=== PATIENT | female | born 1955 | race Hispanic/Latino ===

== ENCOUNTER 2017-10-05 15:03 | Emergency (ER) | payer OTHER ==
[2017-10-05 15:07] VITALS: BP 166/98; PULSE 89; RESP 20; TEMP 98.3; O2SAT 98
--- NOTE | 2017-10-05 15:22 | C.PDOC ---
History Of Present Illness 62-year-old female, presents to the emergency department with complaints of knee pain. Patient states she has a Hx of right knee pain ever since she twisted it while dancing last year. notes she has a Hx of arthritis, and has recurring flare up. Denies nausea/vomiting, numbness/weakness, fever or any other associated symptoms. No other complaints at this time. Time Seen by Provider: 10/05/17 15:12 Chief Complaint (Nursing): Lower Extremity Problem/Injury History Per: Patient History/Exam Limitations: no limitations Onset/Duration Of Symptoms: Days Current Symptoms Are (Timing): Still Present Severity: Moderate Past Medical History Reviewed: Historical Data, Nursing Documentation, Vital Signs Vital Signs: Last Vital Signs Temp 98.3 F 10/05/17 15:06 Pulse 89 10/05/17 15:06 Resp 20 10/05/17 15:06 BP 166/98 H 10/05/17 15:06 Pulse Ox 98 10/05/17 17:57 Family History: States: No Known Family Hx - Social History Hx Alcohol Use: No Hx Substance Use: No Review Of Systems Constitutional: Negative for: Fever Gastrointestinal: Negative for: Nausea, Vomiting Musculoskeletal: Positive for: Other (right knee pain) Neurological: Negative for: Weakness, Numbness Physical Exam - Physical Exam Appears: Non-toxic, No Acute Distress Skin: Normal Color, Warm, Dry, No Rash Head: Atraumatic, Normacephalic Eye(s): bilateral: Normal Inspection, PERRL Nose: Normal Oral Mucosa: Moist Lips: Normal Appearing Neck: Normal ROM Respiratory: No Accessory Muscle Use (no acute respiratory distress) Extremity: Normal ROM, Tenderness (right knee with diffuse tenderness), No Pedal Edema, No Calf Tenderness, Capillary Refill (<2 seconds), No Deformity, No Swelling Pulses: Left Dorsalis Pedis: Normal, Right Dorsalis Pedis: Normal Neurological/Psych: Oriented x3, Normal Speech ED Course And Treatment O2 Sat by Pulse Oximetry: 98 - Other Rad R KNEE XR X-Ray: Viewed By Me, Read By Radiologist Interpretation: Accession No. : [id number]. Patient Name / ID : PARRISH MONTALVO / [id number]. Exam Date : 10/05/2017 15:24:06 ( Approved ). Study Comment : Sex / Age : F / 62Y. Creator : Keith Butterfield MD. Dictator : Keith Butterfield MD. Medical Billing Coder : Classer : Keith Butterfield MD. Approver2 : Report Date : 10/05/2017 15:51:24. My Comment : . Right knee three views. History: Pain. Comparison: None available. Findings: Medial and patellofemoral compartment joint space narrowing. Osteophytosis at the posterior patella superiorly and inferiorly. Enthesopathic change at the superior patella. Small suprapatellar joint effusion. On the frontal view, a lucency through the proximal tibia medially likely is artifact as it extends into the soft tissues. Clinical correlation. If there is concern for osseous injury at this level correlation with MRI may be helpful. Impression: On the frontal view, a lucency through the proximal tibia medially likely is artifact as it extends into the soft tissues. Clinical correlation. If there is concern for osseous injury at this level correlation with MRI may be helpful. Medial and patellofemoral compartment joint space narrowing. Osteophytosis at the posterior patella superiorly and inferiorly. Enthesopathic change at the superior patella. Small suprapatellar joint effusion. If pain persists, consider MRI. Medical Decision Making Medical Decision Making: Plan: * XR Knee * Tylenol PO * Reassess and Disposition Disposition Counseled Patient/Family Regarding: Studies Performed, Diagnosis, Need For Followup, Rx Given - Disposition Referrals: Keesha Coe MD [Staff Provider] - Disposition: HOME/ ROUTINE Disposition Time: 16:02 Condition: GOOD Additional Instructions: FOLLOW UP WITH YOUR PMD AND ORTHOPEDIST ON SATURDAY FOR RE-EVALUATION. KNEE IMMOBILIZER AND CRUTCHES FOR WALKING. IF SYMPTOMS GET WORSE OR ANY NEW CONCERNING SYMPTOMS DEVELOP RETURN TO ED. Prescriptions: Acetaminophen [Tylenol] 2 tab PO Q6H PRN #30 capsule PRN Reason: Pain, Moderate (4-7) Instructions: Tendonitis, Osteoarthritis (DC) Forms: [employer] (Nepalese), General Discharge Instructions Print Language: KOREAN - Clinical Impression Clinical Impression: Knee effusion, Arthritis - Scribe Statement The provider has reviewed the documentation as recorded by the Scribe (Zain Hauser) All medical record entries made by the Scribe were at my direction and personally dictated by me. I have reviewed the chart and agree that the record accurately reflects my personal performance of the history, physical exam, medical decision making, and the department course for this patient. I have also personally directed, reviewed, and agree with the discharge instructions and disposition.
--- NOTE | 2017-10-05 15:52 | RAD ---
Right knee three views History: Pain. Comparison: None available. Findings: Medial and patellofemoral compartment joint space narrowing. Osteophytosis at the posterior patella superiorly and inferiorly. Enthesopathic change at the superior patella. Small suprapatellar joint effusion. On the frontal view, a lucency through the proximal tibia medially likely is artifact as it extends into the soft tissues. Clinical correlation. If there is concern for osseous injury at this level correlation with MRI may be helpful. Impression: On the frontal view, a lucency through the proximal tibia medially likely is artifact as it extends into the soft tissues. Clinical correlation. If there is concern for osseous injury at this level correlation with MRI may be helpful. Medial and patellofemoral compartment joint space narrowing. Osteophytosis at the posterior patella superiorly and inferiorly. Enthesopathic change at the superior patella. Small suprapatellar joint effusion. If pain persists, consider MRI.
== END 2017-10-05 15:56 | disposition home or self-care (01) ==
LOC: C.ER 15:03
DX: M25.461 Effusion, right knee (principal); M17.11 Unilateral primary osteoarthritis, right knee

== ENCOUNTER 2017-11-27 11:15 | Emergency (ER) | payer OTHER ==
[2017-11-27 11:19] VITALS: BP 165/95; PULSE 82; RESP 20; TEMP 97.9; O2SAT 98
--- NOTE | 2017-11-27 11:46 | C.PDOC ---
History Of Present Illness 62 year old female brought to the ED by ambulance for evaluation of left thigh pain/muscle spasm noted when she woke up this morning. Patient has history of chronic right knee pain. She states she was doing exercises in physical therapy yesterday, and wondering if her current symptoms were caused by this. She denies any recent falls/injuries, fever, chest pain, SOB, rash, sensory changes. Time Seen by Provider: 11/27/17 11:16 Chief Complaint (Nursing): Lower Extremity Problem/Injury History Per: Patient History/Exam Limitations: no limitations Onset/Duration Of Symptoms: Hrs Current Symptoms Are (Timing): Still Present Severity: Moderate Additional History Per: Patient Past Medical History Reviewed: Historical Data, Nursing Documentation, Vital Signs Vital Signs: Last Vital Signs Temp 97.9 F 11/27/17 11:18 Pulse 82 11/27/17 11:18 Resp 20 11/27/17 11:18 BP 165/95 H 11/27/17 11:18 Pulse Ox 98 11/27/17 15:17 - Medical History PMH: Back Problems Surgical History: No Surg Hx Family History: States: No Known Family Hx - Social History Hx Alcohol Use: No Hx Substance Use: No Review Of Systems Constitutional: Negative for: Fever, Chills Cardiovascular: Negative for: Chest Pain, Palpitations Respiratory: Negative for: Cough, Shortness of Breath Gastrointestinal: Negative for: Nausea, Vomiting, Abdominal Pain, Diarrhea Musculoskeletal: Positive for: Other (left thigh pain/muscle spasm ) Skin: Negative for: Rash Neurological: Negative for: Weakness, Numbness Physical Exam - Physical Exam Appears: Well, Non-toxic, No Acute Distress Skin: Normal Color, Warm, Dry, No Rash, No Ecchymosis, No Other (erythema to left thigh ) Head: Normacephalic Eye(s): bilateral: Normal Inspection Oral Mucosa: Moist Teeth: No Normal Dentition (poor ) Neck: Supple Cardiovascular: Rhythm Regular Respiratory: Normal Breath Sounds, No Rales, No Rhonchi, No Wheezing Extremity: Tenderness (mild TTP to left outer thigh ), Capillary Refill (< 2 sec all digits ), No Deformity, No Swelling Extremity: Left: Hips Non-Tender Pulses: Left Dorsalis Pedis: Normal, Right Dorsalis Pedis: Normal Neurological/Psych: Oriented x3, Normal Motor, Normal Sensation Gait: Steady ED Course And Treatment O2 Sat by Pulse Oximetry: 98 (on RA) Pulse Ox Interpretation: Normal Progress Note: Patient Motrin PO given. Patient's symptoms likely due to muscle spasm/soreness from PT yesterday. No rash/deformity/swelling, etc on exam. Pain improved with Motrin, and patient able to ambulate well in ED. She was discharged and instructed to follow up with her PMD in 1-2 days. She understands she should return to ED if symptoms worsen. Reevaluation Time: 11:50 Reassessment Condition: Improved Disposition Counseled Patient/Family Regarding: Diagnosis, Need For Followup - Disposition Referrals: Shaik Jeter MD [Staff Provider] - Disposition: HOME/ ROUTINE Disposition Time: 11:50 Condition: STABLE Additional Instructions: FOLLOW UP WITH YOUR DOCTOR IN 1-2 DAYS CONTINUE YOUR PHYSICAL THERAPY USE IBUPROFEN FOR PAIN NEEDED RETURN TO ER IF SYMPTOMS WORSEN Instructions: Chronic Knee Pain (DC) Forms: [employer] (Divehi) Print Language: ARABIC - Clinical Impression Clinical Impression: Muscle spasm, Chronic pain of right knee - Scribe Statement The provider has reviewed the documentation as recorded by the Scribe (Jasmyne Esteban) Provider Attestation: All medical record entries made by the Scribe were at my direction and personally dictated by me. I have reviewed the chart and agree that the record accurately reflects my personal performance of the history, physical exam, medical decision making, and the department course for this patient. I have also personally directed, reviewed, and agree with the discharge instructions and disposition.
== END 2017-11-27 12:02 | disposition home or self-care (01) ==
LOC: C.ER 11:15
DX: M62.838 Other muscle spasm (principal); M25.561 Pain in right knee; G89.29 Other chronic pain

== ENCOUNTER 2017-12-27 17:37 | Emergency (ER) | payer OTHER ==
[2017-12-27 17:58] VITALS: O2SAT 98
--- NOTE | 2017-12-27 18:56 | C.PDOC ---
History Of Present Illness 62 y/o female presents to the ED complaining of right knee pain for 1 year. She denies any fall or blunt trauma. Patient reports that last year while dancing she injured the knee, and ever since then pain has been intermittent. She also reports feeling numbness in her toes, described as if they are . Patient otherwise denies any extremity weakness and is able to ambulate by weight bearing more on her left side, although occasionally this causes pain in her left knee as well. She has seen her PMD for similar complaint, and had an x-ray showing arthritis. Patient reports taking ibuprofen at home with minimal relief. No gross swelling, skin changes, or other complaints. Time Seen by Provider: 12/27/17 18:45 Chief Complaint (Nursing): Lower Extremity Problem/Injury History Per: Patient History/Exam Limitations: no limitations Onset/Duration Of Symptoms: Days (1 year) Current Symptoms Are (Timing): Still Present Past Medical History Reviewed: Historical Data, Nursing Documentation, Vital Signs Vital Signs: Last Vital Signs Temp 98.4 F 12/27/17 21:30 Pulse 81 12/27/17 21:30 Resp 16 12/27/17 21:30 BP 152/89 H 12/27/17 21:30 Pulse Ox 98 12/27/17 21:30 - Medical History PMH: Back Problems Family History: States: Unknown Family Hx - Social History Hx Alcohol Use: No Hx Substance Use: No Review Of Systems Except As Marked, All Systems Reviewed And Found Negative. Musculoskeletal: Positive for: Leg Pain (right knee pain) Skin: Negative for: Rash, Lesions, Bruising Neurological: Positive for: Numbness (to toes on bilateral feet). Negative for : Weakness, Incoordination Physical Exam - Physical Exam Appears: Well, Non-toxic, No Acute Distress Skin: Normal Color, Warm, Dry Head: Atraumatic, Normacephalic Eye(s): bilateral: Normal Inspection, PERRL, EOMI Neck: Normal ROM, Supple Chest: Symmetrical Extremity: Normal ROM, No Tenderness, Capillary Refill (< 2 sec), No Deformity, No Swelling (or ecchymosis) Pulses: Left Dorsalis Pedis: Normal, Right Dorsalis Pedis: Normal Neurological/Psych: Oriented x3, Normal Speech, Normal Motor, Normal Sensation ED Course And Treatment O2 Sat by Pulse Oximetry: 98 (RA) Pulse Ox Interpretation: Normal Medical Decision Making Medical Decision Making: Initial Impression: Right knee pain Plan: --Motrin 600 mg PO --Bilateral knee x-rays Disposition - Disposition Referrals: Jg Green, [Non-Staff] - Ulises Melton III, MD [Staff Provider] - Disposition: HOME/ ROUTINE Disposition Time: 19:40 Condition: GOOD Additional Instructions: SEL[facility]IN SENIOR, thank you for letting us take care of you today. The emergency medical care you received today was directed at your acute symptoms. If you were prescribed any medication, please fill it and take as directed. It may take several days for your symptoms to resolve. Return to the Emergency Department if your symptoms worsen, do not improve, or if you have any other problems. Please contact your doctor or call one of the physicians/clinics you have been referred to that are listed on the Patient Visit Information form that is included in your discharge packet. Bring any paperwork you were given at discharge with you along with any medications you are taking to your follow up visit. Our treatment cannot replace ongoing medical care by a primary care provider outside of the emergency department. Thank you for allowing the [facility] team to be part of your care today. Follow up with your primary care doctor and the orthopedic doctor next week for re-evaluation and further management. Prescriptions: Ibuprofen [Motrin] 600 mg PO Q6 PRN #20 tab PRN Reason: Pain, Moderate (4-7) Instructions: Osteoarthritis (DC), Knee Pain (DC) Forms: [employer] (Peruvian) - Clinical Impression Clinical Impression: Arthritis - Scribe Statement The provider has reviewed the documentation as recorded by the Jennifer Reilly Provider Attestation: All medical record entries made by the Karenibzakia were at my direction and personally dictated by me. I have reviewed the chart and agree that the record accurately reflects my personal performance of the history, physical exam, medical decision making, and the department course for this patient. I have also personally directed, reviewed, and agree with the discharge instructions and disposition.
[2017-12-27 22:03] VITALS: BP 152/89; PULSE 81; RESP 16; TEMP 98.4
--- NOTE | 2017-12-28 09:03 | RAD ---
Date of service: 12/27/2017 PROCEDURE: Bilateral Knee Radiographs. HISTORY: r/o fx COMPARISON: Right knee radiographs 10/05/2017. FINDINGS: BONES: No acute fracture or destructive bony lesion identified, bilaterally. JOINTS: Advanced osteoarthritis is appreciate bilaterally concentrated at the medial femorotibial and patellofemoral compartments where there is joint space narrowing and articular cortical sclerosis. No prominent osteophyte development. SOFT TISSUES: Soft tissue calcifications approximate bilateral menisci in medial lateral femorotibial compartments and are otherwise unremarkable. JOINT EFFUSION: Right Knee: None. Left Knee: None. OTHER FINDINGS: None. IMPRESSION: Advanced bilateral osteoarthritis. No acute fracture, dislocation or destructive bony lesion appreciable.
== END 2017-12-27 22:04 | disposition home or self-care (01) ==
LOC: C.ER 17:37
DX: M19.90 Unspecified osteoarthritis, unspecified site (principal)

== ENCOUNTER 2018-04-10 13:02 | Emergency (ER) | payer OTHER ==
[2018-04-10 13:24] VITALS: BMI 36.9
--- NOTE | 2018-04-10 13:42 | C.PDOC ---
History Of Present Illness 62 y/o female,w/PMhx of osteoarthritis, presents to the ER complaining of right knee pain which has been present for the past 1 year. Patient states that she was dancing when she injured her knee 1 year ago. Patient reports that she took Naproxen without relief. She notes that she was supposed to follow up with her orthopedic surgery, however she did follow up with an orthopedic surgeon because she had insurance issues. Denies any trauma, weakness and parasthesias and has no other complaints. Time Seen by Provider: 04/10/18 13:16 Chief Complaint (Nursing): Lower Extremity Problem/Injury History Per: Patient History/Exam Limitations: no limitations Onset/Duration Of Symptoms: Days Current Symptoms Are (Timing): Still Present Severity: Moderate Past Medical History Reviewed: Historical Data, Nursing Documentation, Vital Signs Vital Signs: Last Vital Signs Temp 97.6 F 04/10/18 13:12 Pulse 104 H 04/10/18 13:12 Resp BP 155/98 H 04/10/18 13:12 Pulse Ox 95 04/10/18 13:12 - Medical History PMH: Back Problems Other Surgeries: Hx of surgeries Family History: States: No Known Family Hx - Social History Hx Alcohol Use: No Hx Substance Use: No - Immunization History Hx Tetanus Toxoid Vaccination: No Hx Influenza Vaccination: No Hx Pneumococcal Vaccination: No Review Of Systems Except As Marked, All Systems Reviewed And Found Negative. Musculoskeletal: Positive for: Other (right knee pain) Neurological: Negative for: Weakness, Numbness Physical Exam - Physical Exam Appears: Non-toxic, No Acute Distress Skin: Normal Color, Warm, Dry, Other (skin intact over right knee, no erythema and no decreased warmth to right knee) Head: Atraumatic, Normacephalic Eye(s): bilateral: Normal Inspection Neck: Supple Chest: Symmetrical Extremity: Normal ROM, Tenderness (tenderness in right knee), No Swelling Pulses: Left Dorsalis Pedis: Normal, Right Dorsalis Pedis: Normal Neurological/Psych: Oriented x3, Normal Speech ED Course And Treatment O2 Sat by Pulse Oximetry: 95 (RA) Pulse Ox Interpretation: Normal - Other Rad X-Ray- Right Knee X-Ray: Viewed By Me, Read By Radiologist Interpretation: Date of service: 04/10/2018. PROCEDURE: Right Knee Radiographs. HISTORY: pain. COMPARISON: 12/27/2017. FINDINGS: BONES: There is diffuse bone demineralization. No acute displaced fracture or bone destruction. Bone alignment is normal. JOINTS: There is moderate tricompartmental degenerative osteoarthrosis with reduced joint spaces, marginal osteophytes, chondrocalcinosis and tibial spiking, worse in the medial compartment. JOINT EFFUSION: None. OTHER FINDINGS: None. IMPRESSION: No acute displaced fracture or dislocation. Moderate tricompartmental degenerative osteoarthrosis, worse in the medial compartment. Medical Decision Making Medical Decision Making: Plan: --Motrin PO --X-Ray- Right Knee Updates: 15:15 X-Ray- Right Knee shows degenerative osteoarthritis, worsening in the medial compartment. On re-evaluation, patient states that she did not have relief with Motrin. I recommended Tylenol, however patient declined. Understands and agrees to immediately return to the ER if having increased swelling, pain, numbness/tingling, change in color or sensation, or any other concerning/worsening, new or continued symptoms. Understands and agrees to remove case/splint if having any of these sxs and see ortho/ER quickly. Pt agrees to make appt with ortho for 1-2 days from now. States will call [facility] for appointments. Patient is very well appearing and non-toxic. Vital signs are stable. I discussed the results of the work-up, diagnosis and treatment. Written discharge instructions were provided to patient. Additional verbal instructions were given and discussed with patient. We discussed the importance of follow up with PCP/consultants. I also reiterated reasons to immediately return to the ER incl uding: worsening in current symptoms and/or new, continued, or concerning symptoms. Pt understood and agreed. Disposition Counseled Patient/Family Regarding: Studies Performed, Diagnosis, Need For Followup - Disposition Disposition: HOME/ ROUTINE Disposition Time: 15:26 Condition: STABLE Prescriptions: Acetaminophen [Acetaminophen Extra Strength] 500 mg PO Q6H PRN #30 tablet PRN Reason: Pain, Moderate (4-7) Instructions: Osteoarthritis Forms: [facility] (Armenian), General Discharge Instructions - POA Present On Arrival: None - Clinical Impression Clinical Impression: Chronic pain of right knee, Osteoarthritis - Scribe Statement The provider has reviewed the documentation as recorded by the Jennifer Gonzáles Provider Attestation: All medical record entries made by the Karenibe were at my direction and personally dictated by me. I have reviewed the chart and agree that the record accurately reflects my personal performance of the history, physical exam, medical decision making, and the department course for this patient. I have also personally directed, reviewed, and agree with the discharge instructions and disposition.
--- NOTE | 2018-04-10 15:01 | RAD ---
Date of service: 04/10/2018 PROCEDURE: Right Knee Radiographs. HISTORY: pain COMPARISON: 12/27/2017 FINDINGS: BONES: There is diffuse bone demineralization. No acute displaced fracture or bone destruction. Bone alignment is normal. JOINTS: There is moderate tricompartmental degenerative osteoarthrosis with reduced joint spaces, marginal osteophytes, chondrocalcinosis and tibial spiking, worse in the medial compartment. JOINT EFFUSION: None. OTHER FINDINGS: None. IMPRESSION: No acute displaced fracture or dislocation. Moderate tricompartmental degenerative osteoarthrosis, worse in the medial compartment.
[2018-04-10 16:02] VITALS: RESP 20
[2018-04-10 18:22] VITALS: BP 133/75; PULSE 83; TEMP 98.1
[2018-04-10 20:41] VITALS: O2SAT 95
== END 2018-04-10 18:20 | disposition home or self-care (01) ==
LOC: C.ER 13:02
DX: G89.29 Other chronic pain (principal); M25.561 Pain in right knee; M17.11 Unilateral primary osteoarthritis, right knee

== ENCOUNTER 2018-05-22 17:32 | Emergency (ER) | payer OTHER ==
[2018-05-22 17:33] VITALS: BMI 36.9
[2018-05-22 17:56] VITALS: BP 154/98; PULSE 88; TEMP 97.6; O2SAT 98
--- NOTE | 2018-05-22 18:14 | C.PDOC ---
History Of Present Illness 62 yo female BIBA for evaluation of nausea. Pt reports, ' was seen just now and [place] [facility] [place] with antibiotic. Now, feel nauseous, hungry, want sandwich". Pt also c/o chronic pain over her B/L knees R>L, " have arthritis in my knees". Copies of discharge papers review [place] [facility] [place], pt was discharged on 05/22/18 at 15:46, Dx: UTI, received levaquin, tylenol and diclofenac in ED and prescription. Otherwise, pt denies fever, chills, headache, dizziness, CP, SOB, dyspnea, diaphoresis, palpitation, abd. pain, vomiting, diarrhea, hematuria. Appears comfortable, not in any apparent distress. Time Seen by Provider: 05/22/18 18:00 Chief Complaint (Nursing): GI Problem History Per: Patient Past Medical History Reviewed: Historical Data, Nursing Documentation, Vital Signs Vital Signs: Last Vital Signs Temp 97.6 F 05/22/18 17:56 Pulse 88 05/22/18 17:56 Resp BP 154/98 H 05/22/18 17:56 Pulse Ox 98 05/22/18 17:56 - Medical History PMH: Arthritis, Back Problems, Dementia, Chronic Pain Family History: States: Unknown Family Hx - Social History Hx Alcohol Use: No Hx Substance Use: No - Immunization History Hx Tetanus Toxoid Vaccination: No Hx Influenza Vaccination: No Hx Pneumococcal Vaccination: No Review Of Systems Except As Marked, All Systems Reviewed And Found Negative. Constitutional: Negative for: Fever, Chills Cardiovascular: Negative for: Chest Pain, Palpitations, Orthopnea Respiratory: Negative for: Cough, Shortness of Breath, Wheezing Gastrointestinal: Positive for: Nausea. Negative for: Vomiting, Abdominal Pain, Diarrhea Genitourinary: Negative for: Hematuria Musculoskeletal: Positive for: Other (B/L knees pain) Skin: Negative for: Rash Neurological: Negative for: Weakness, Numbness Physical Exam - Physical Exam Appears: Well, Non-toxic, No Acute Distress Skin: Normal Color, Warm, Dry, No Rash, No Ecchymosis Eye(s): bilateral: PERRL Nose: No Flaring Throat: No Drooling Neck: Supple Cardiovascular: Rhythm Regular, No Murmur, No JVD Respiratory: No Decreased Breath Sounds, No Accessory Muscle Use, No Stridor, No Wheezing Gastrointestinal/Abdominal: Soft, No Tenderness, No Distention, No Guarding, No Rebound Back: No CVA Tenderness Extremity: Normal ROM, Tenderness (mild tenderness over anterior aspect Right knee. No edema, no erythema, no skin changes. FAROM, no neurovascular deficits.), No Pedal Edema, No Calf Tenderness (B/L), No Deformity Neurological/Psych: Oriented x3, Normal Speech ED Course And Treatment O2 Sat by Pulse Oximetry: 98 Pulse Ox Interpretation: Normal Progress Note: On re-eval, pt is afebrile, hemodynamicaly stable. non-toxic. Tolerate Po well in ED, no vomiting. Ambulatoyr in Ed with baseline gait. Abd: benign, (-) guarding, (-) rebound. Back: (-) CVA tenderness. Pt advised to cont. medictaion as int[place] [facility] [place] return to Ed if any worsening ro new changes. Pt uderstand and agrees with plan. Disposition Counseled Patient/Family Regarding: Diagnosis, Need For Followup, Rx Given - Disposition Referrals: Shaik Jeter MD [Staff Provider] - Disposition: HOME/ ROUTINE Disposition Time: 18:18 Condition: STABLE Additional Instructions: Continue medication as prescribed at medical Center Encourage fluids Follow up with PMD in 2-3 days for re-evaluation. return if any new changes. Prescriptions: Famotidine [Pepcid] 20 mg PO BID #20 tab Ondansetron ODT [Zofran ODT] 1 odt PO BID PRN #6 odt PRN Reason: Nausea/Vomiting Instructions: Urinary Tract Infections in Adults, Osteoarthritis (DC) Forms: [employer] (Monegasque) - Clinical Impression Clinical Impression: Arthritis of knee, UTI (urinary tract infection), Nausea
== END 2018-05-23 00:29 | disposition home or self-care (01) ==
LOC: C.ER 17:32
DX: N39.0 Urinary tract infection, site not specified (principal); R11.0 Nausea; M17.10 Unilateral primary osteoarthritis, unspecified knee

== ENCOUNTER 2018-06-11 11:17 | Emergency (ER) | payer OTHER ==
[2018-06-11 11:17] VITALS: BMI 36.9
--- NOTE | 2018-06-11 12:08 | C.PDOC ---
History Of Present Illness 63 y/o female,w/PMhx of arthritis, presents to the ER complaining of bilateral knee pain. Patient states that her called for the ambulance. Patient is also complaining of not having bowel movements for the past 3 days. Denies having fever,chills, nausea, vomiting, abdominal pain, dysuria, and hematuria. Of note, patient has visited the ER multiple times. Time Seen by Provider: 06/11/18 11:21 Chief Complaint (Nursing): GI Problem History Per: Patient History/Exam Limitations: no limitations Onset/Duration Of Symptoms: Days Current Symptoms Are (Timing): Still Present Severity: Moderate Past Medical History Reviewed: Historical Data, Nursing Documentation, Vital Signs Vital Signs: Last Vital Signs Temp 98.6 F 06/11/18 11:29 Pulse 110 H 06/11/18 11:29 Resp 22 06/11/18 11:29 BP 153/111 H 06/11/18 11:29 Pulse Ox 97 06/11/18 11:29 - Medical History PMH: Arthritis, Back Problems, Dementia, Chronic Pain Other Surgeries: Hx of surgeries Family History: States: No Known Family Hx - Social History Hx Alcohol Use: No Hx Substance Use: No - Immunization History Hx Tetanus Toxoid Vaccination: No Hx Influenza Vaccination: No Hx Pneumococcal Vaccination: No Review Of Systems Except As Marked, All Systems Reviewed And Found Negative. Constitutional: Negative for: Fever, Chills Gastrointestinal: Positive for: Constipation. Negative for: Nausea, Vomiting, Abdominal Pain, Diarrhea Genitourinary: Negative for: Dysuria, Hematuria Musculoskeletal: Positive for: Other (bilateral knee pain) Physical Exam - Physical Exam Appears: Non-toxic, No Acute Distress Skin: Normal Color, Warm, Dry Head: Atraumatic, Normacephalic Eye(s): bilateral: Normal Inspection Nose: Normal Oral Mucosa: Moist Neck: Supple Chest: Symmetrical Cardiovascular: Rhythm Regular Respiratory: Normal Breath Sounds, No Rales, No Rhonchi, No Wheezing Gastrointestinal/Abdominal: Soft, No Tenderness, No Guarding, No Rebound Extremity: Normal ROM Neurological/Psych: Oriented x3, Normal Speech ED Course And Treatment O2 Sat by Pulse Oximetry: 97 (RA) Pulse Ox Interpretation: Normal - Other Rad No standard instances X-Ray: Viewed By Me, Read By Radiologist Interpretation: HISTORY: Abd Pain. COMPARISON: None available. TECHNIQUE: AP radiograph of the chest, with upright and supine radiographs of the abdomen. FINDINGS: Examination limited by habitus. CHEST: Heart size appears within normal limits. No focal consolidation, significant pleural effusion, or definite pneumothorax. Please note that chest x-ray has limited sensitivity for the detection of pulmonary masses. ABDOMEN AND PELVIS: The nonobstructive bowel gas pattern. Moderate constipation. No definite free air. Degenerative changes of the spine. Osseous demineralization. Acromioclavicular arthropathy. Deformity of the right pelvis/inferior pubic ramus. IMPRESSION: Moderate constipation. Additional findings as above. Progress Note: Treated with toradol IM, fleets enema and magnesium citrate. On re-evaluation abdomen soft in no distress Reassessment Condition: Improved Medical Decision Making Medical Decision Making: Plan: --Enema [place] --X-Ray- Ob Series --Toradol IM Disposition Counseled Patient/Family Regarding: Studies Performed, Diagnosis, Need For Followup, Rx Given - Disposition Referrals: Wilberto Patel [Staff Provider] - Disposition: HOME/ ROUTINE Disposition Time: 17:00 Condition: GOOD Additional Instructions: Follow up with your PMD for further evaluation Prescriptions: Nitrofurantoin Macrocrystals [Macrobid] 1 cap PO BID #14 cap Polyethylene Glycol 3350 [Miralax] 17 gm PO DAILY PRN #20 packet PRN Reason: Constipation Instructions: Constipation in Adults, High Fiber Diet Forms: [employer] (Bolivian) - POA Present On Arrival: None - Clinical Impression Clinical Impression: Constipation - PA / WELDING OPERATOR / Resident Statement MD/DO has reviewed & agrees with the documentation as recorded. - Scribe Statement The provider has reviewed the documentation as recorded by the Jennifer Gonzáles Provider Attestation All medical record entries made by the Jennifer were at my direction and personally dictated by me. I have reviewed the chart and agree that the record accurately reflects my personal performance of the history, physical exam, medical decision making, and the department course for this patient. I have also personally directed, reviewed, and agree with the discharge instructions and disposition.
--- NOTE | 2018-06-11 12:52 | RAD ---
Date of service: 06/11/2018 PROCEDURE: Radiographs of the chest and abdomen (obstructive series) HISTORY: Abd Pain COMPARISON: None available. TECHNIQUE: AP radiograph of the chest, with upright and supine radiographs of the abdomen. FINDINGS: Examination limited by habitus. CHEST: Heart size appears within normal limits. No focal consolidation, significant pleural effusion, or definite pneumothorax. Please note that chest x-ray has limited sensitivity for the detection of pulmonary masses. ABDOMEN AND PELVIS: The nonobstructive bowel gas pattern. Moderate constipation. No definite free air. Degenerative changes of the spine. Osseous demineralization. Acromioclavicular arthropathy. Deformity of the right pelvis/inferior pubic ramus. IMPRESSION: Moderate constipation. Additional findings as above.
[2018-06-11 13:17] LABS: SQUAMOUS EPITHIAL 9 /hpf (0-5); URINE BACTERIA RARE (<OCC); URINE BILIRUBIN NEGATIVE (NEGATIVE); URINE BLOOD NEGATIVE (NEGATIVE); URINE CLARITY Hazy (Clear); URINE COLOR Yellow (YELLOW); URINE GLUCOSE (UA) NORMAL (Normal); URINE LEUKOCYTE ESTERASE 1+ Leu/uL (Negative); URINE PROTEIN 2+ mg/dL (NEGATIVE)
[2018-06-11] MEDS ORDERED: Magnesium Citrate Oral SOL (300 ml) ONE (13:48)
[2018-06-11] MEDS: Magnesium Citrate Oral SOL (300 ml) PO ONE ×2 (13:53→14:19)
[2018-06-11 14:03] VITALS: RESP 20
[2018-06-11 16:04] VITALS: BP 140/90; PULSE 88; TEMP 98.5
[2018-06-11 17:31] VITALS: O2SAT 97
== END 2018-06-11 17:06 | disposition home or self-care (01) ==
LOC: C.ER 11:17
DX: K59.00 Constipation, unspecified (principal)
CPT/HCPCS: 74022; 81001; 96372; 99285; J1885